=== PATIENT | female | born 1965 | race African-American/Black ===

== ENCOUNTER 2023-06-20 08:26 | Emergency (ER) | payer MEDICAID ==
[~2023-06-20] VITALS: Ht 170.2 cm; Wt 138.8 kg
[2023-06-20 08:39] VITALS: TEMP 97.7
[2023-06-20 09:05] LABS: URINE HCG NEGATIVE (NEG)
[2023-06-20 09:06] LABS: COLOR,URINE YELLOW (Yellow); GLUCOSE, URINE NEGATIVE (Neg); KETONES,URINE NEGATIVE (Neg); LEUKOCYTE ESTERASE ,URINE SMALL (Neg); NITRITES, URINE NEGATIVE (Neg); OCCULT BLOOD,URINE LARGE (Neg); PH,URINE 5.5 (4.8-8.0); PROTEIN,URINE NEGATIVE (Neg); UROBILINOGEN,URINE 0.2 E.U/dL (0.2-1.0)
[2023-06-20 09:11] LABS: CLARITY,URINE CLOUDY (Clear); UA COLLECTION TYPE CLN CATCH MIDSTREAM
[2023-06-20 09:16] LABS: BACTERIA,URINE 4+ /HPF (Neg); MUCUS STRANDS FEW /LPF (Neg); SQUAMOUS EPITHELIAL CELL,UR MANY /LPF (FEW); WBC,URINE 20-30 /HPF (0-4)
[2023-06-20 09:22] LABS: BASOPHILS % (AUTO) 0.9 % (0-1); EOSINOPHILS # (AUTO) 0.1 X10'3 (0-0.9); EOSINOPHILS % (AUTO) 1.8 % (0-6); HEMATOCRIT 39.2 % (35.0-45.0); HEMOGLOBIN 12.5 g/dl (12.0-16.0); LYMPHOCYTES # (AUTO) 2.7 X10'3 (1.1-4.8); MEAN CORPUSCULAR HEMOGLOBIN 31.3 PG (27.0-31.0); MEAN CORPUSCULAR VOLUME 97.8 FL (78-98); MEAN PLATELET VOLUME 9.3 FL (7.4-10.4); MONOCYTES # (AUTO) 0.4 X10'3 (0-0.9); MONOCYTES % (AUTO) 7.4 % (2-12); NEUTROPHILS # (AUTO) 1.8 X10'3 (1.8-7.7); NEUTROPHILS % (AUTO) 35.9 % (42-75); PLATELET COUNT 193 X10'3 (140-440); RED BLOOD COUNT 4.01 X10'6 (4.20-5.60); RED CELL DISTRIBUTION WIDTH 13.4 % (11.5-14.5)
[2023-06-20 09:39] VITALS: BP 123/83; PULSE 71; RESP 16; O2SAT 98
[2023-06-20 09:49] LABS: ALANINE AMINOTRANSFERASE 16 U/L (12-78); ALBUMIN 3.2 G/DL (3.4-5.0); ALBUMIN/GLOBULIN RATIO 0.7 (1.1-1.5); ALKALINE PHOSPHATASE 95 IU/L (46-116); ANION GAP 8 (8-16); ASPARTATE AMINO TRANSFERASE 8 U/L (10-37); BILIRUBIN,TOTAL 0.3 MG/DL (0.1-1.0); BLOOD UREA NITROGEN 17 MG/DL (7-18); CALCIUM 10.7 MG/DL (8.5-10.1); CHLORIDE 109 MMOL/L (99-107); CREATININE 0.81 MG/DL (0.40-0.90); GLUCOSE 122 MG/DL (70-104); LIPASE 90 U/L (73-393); POTASSIUM 3.8 MMOL/L (3.5-5.1); SODIUM 143 MMOL/L (135-145); TOTAL PROTEIN 7.7 G/DL (6.4-8.2); eGFR 73 ML/MIN
[2023-06-20 10:10] LABS: TOTAL CELLS COUNTED 100
[2023-06-20 10:11] LABS: PLATELET ESTIMATE NORMAL
== END 2023-06-20 10:08 | disposition home or self-care (01) ==
LOC: ER 08:27
DX: K42.9 Umbilical hernia without obstruction or gangrene (principal)
CPT/HCPCS: 36415; 80053; 81001; 81025; 83690; 85007; 85025; 99283

== ENCOUNTER 2023-07-24 05:48 | Day surgery (SDC) | payer MEDICAID ==
[2023-07-17 15:46] LABS: BASOPHILS % (AUTO) 0.7 % (0-1); EOSINOPHILS # (AUTO) 0.3 X10'3 (0-0.9); EOSINOPHILS % (AUTO) 5.1 % (0-6); LYMPHOCYTES # (AUTO) 2.6 X10'3 (1.1-4.8); LYMPHOCYTES % (AUTO) 46.8 % (21-51); MEAN CORPUSCULAR HEMOGLOBIN 31.2 PG (27.0-31.0); MEAN CORPUSCULAR HGB CONC 32.4 g/dL (33.0-36.5); MEAN CORPUSCULAR VOLUME 96.3 FL (78-98); MEAN PLATELET VOLUME 9.3 FL (7.4-10.4); MONOCYTES # (AUTO) 0.5 X10'3 (0-0.9); MONOCYTES % (AUTO) 8.4 % (2-12); NEUTROPHILS # (AUTO) 2.2 X10'3 (1.8-7.7); PRE OP HEMATOCRIT 39.3 % (35.0-45.0); PRE OP HEMOGLOBIN 12.7 g/dL (12.0-16.0); PRE OP PLATELET COUNT 203 X10'3 (140-440); PRE OP WHITE BLOOD COUNT 5.6 10'3 (4.8-10.8); RED BLOOD COUNT 4.08 X10'6 (4.20-5.60); RED CELL DISTRIBUTION WIDTH 13.1 % (11.5-14.5)
[2023-07-17 15:58] LABS: ALBUMIN 3.2 G/DL (3.4-5.0); ALBUMIN/GLOBULIN RATIO 0.8 (1.1-1.5); ALKALINE PHOSPHATASE 105 IU/L (46-116); BLOOD UREA NITROGEN 14 MG/DL (7-18); BUN/CREATININE RATIO 15.9 (10.0-20.0); CALCIUM 10.5 MG/DL (8.5-10.1); CHLORIDE 109 MMOL/L (99-107); CREATININE 0.88 MG/DL (0.40-0.90); PRE OP ALT 19 U/L (30-65); PRE OP ANION GAP 5 (8-16); PRE OP AST 12 U/L (10-37); PRE OP BILIRUB, TOTAL 0.1 MG/DL (0.0-1.0); PRE OP GLUCOSE 101 MG/DL (70-104); PRE OP SODIUM 142 MMOL/L (135-145); TOTAL CARBON DIOXIDE 27.8 MMOL/L (24-32); TOTAL PROTEIN 7.4 G/DL (6.4-8.2); eGFR 80 ML/MIN
[2023-07-24] VITALS (11 sets, daily range): BP systolic 120–156; BP diastolic 84–96; PULSE 57–71; RESP 12–16; TEMP 97.7; O2SAT 92–100
[~2023-07-24] VITALS: Ht 167.6 cm; Wt 140.7 kg
[~2023-07-24 05:48] MED LIST: NO HOME MEDS; cefazolin 2gm/D5W 100mL 100 ML IV ONE; famotidine 20mg tablet PO ONE; ringers solution, lacted 1,000 ML IV SCH
[2023-07-24] MEDS ORDERED: LIDOcaine 1% 30ml preserv. free vial ONE (06:56)
[2023-07-24] MEDS ORDERED: BUPIVAcaine/PF 2.5 mg/ml (0.25%) 30ml vial ONE ×2 (06:56→07:06)
[2023-07-24] MEDS ORDERED: BUPIVACAINE liposomal/PF 13.3 MG/ML vial IM ONE ×2 (07:00→07:06)
[2023-07-24] MEDS ORDERED: LIDOcaine 1% 30ml preserv. free vial IJ ONE (07:00)
[2023-07-24] MEDS ORDERED: BUPIVAcaine/PF 2.5 mg/ml (0.25%) 30ml vial IJ ONE (07:00)
[2023-07-24] MEDS ORDERED: fentaNYL /PF 50mcg/ml 5ml ampule ONE (07:33)
[2023-07-24] MEDS ORDERED: midazolam 1 mg/ML 2ml injection ONE (07:33)
[2023-07-24] MEDS ORDERED: morphine 4 MG/ML inj SYRINge IV PRN (07:45)
[2023-07-24] MEDS ORDERED: sevoflurane 250ml liquid IH ONE (07:45)
[2023-07-24] MEDS ORDERED: hydrALAZINE 20mg/ml inj. IV PRN (07:45)
[2023-07-24] MEDS ORDERED: ketorolac trometh. 30mg/ml inj. IV ONE (07:45)
[2023-07-24] MEDS ORDERED: ondansetron/PF 4mg/2ml inj IV PRN (07:45)
[2023-07-24] MEDS ORDERED: proCHLORperazine 10 MG/2 ml inj IV PRN (07:45)
[2023-07-24] MEDS ORDERED: morphine 2 MG/ML inj. syringe IV PRN (07:45)
[2023-07-24] MEDS ORDERED: labetalol 20mg/4ml (5mg/ml) syringe IV PRN (07:45)
[2023-07-24] MEDS ORDERED: acetaminophen 1,000mg/100ml IV 100 ML IV PRN (07:45)
[2023-07-24] MEDS ORDERED: meperidine/PF 25mg/ml syringe IV PRN ×2 (07:45)
[2023-07-24] MEDS ORDERED: ringers solution, lacted 1,000 ML IV SCH (07:45)
[2023-07-24] MEDS ORDERED: propofol inj 20 ML IV ONE (08:15)
[2023-07-24] MEDS ORDERED: ceFAZolin 1000mg inj ONE (08:15)
[2023-07-24] MEDS ORDERED: LIDOcaine 2% (20mg/ml) 5ml vial ONE (08:15)
[2023-07-24] MEDS ORDERED: rocuronium 10mg/ml inj IV ONE (08:15)
[2023-07-24] MEDS ORDERED: 0.9 % SODIUM CHLORIDE 10 ML VIAL ONE (08:15)
[2023-07-24] MEDS ORDERED: ondansetron/PF 4mg/2ml inj ONE (08:19)
[2023-07-24] MEDS ORDERED: dexamethasone sod phosphate 4mg/ml inj. ONE (08:19)
[2023-07-24] MEDS ORDERED: sugammadex 200mg/2ml injection IV ONE (09:26)
--- NOTE | 2023-07-24 09:39 | NUR ---
Received from OR via , accompanied by Anesthesiologist and report given by DR. CHAVARRIA. PATIENT ANSWERING QUESTIONS, SEVERE PAIN, V/S WNL, SCD ON , PIV 20G L.HAND, DERMABONDED LAPS SITES CLOSED CDI TO ABDOMEN.
[2023-07-24] MEDS: meperidine/PF 25mg/ml syringe IV PRN ×2 (09:41→09:56)
[2023-07-24] MEDS ORDERED: oxyCODONE/APAP 5-325mg tablet PO PRN (09:45)
--- NOTE | 2023-07-24 11:19 | NUR ---
PATIENT MEETS DISCHARGE CRITERIA FROM RECOVERY TO HOME. BROTHER IN LAW GANGA REVIEWED DISCHARGE INSTRUCTIONS ALONG WITH PATIENT. PAIN MANAGEABLE. BELONGINGS SENT WITH PATIENT AND TRANSPORTED BY WHEELCHAIR TO VEHICLE TO GO HOME.
== END 2023-07-24 11:19 | disposition home or self-care (01) ==
LOC: PAS 05:48
PROVIDERS: ATTEND Surgery
DX: K43.0 Incisional hernia with obstruction, without gangrene (principal); E66.01 Morbid (severe) obesity due to excess calories; Z68.42 Body mass index [BMI] 45.0-49.9, adult; F17.210 Nicotine dependence, cigarettes, uncomplicated; Z98.51 Tubal ligation status; Z79.899 Other long term (current) drug therapy; Z82.49 Family history of ischemic heart disease and other diseases of the circulatory system; Z82.3 Family history of stroke
CPT/HCPCS: 36415; 49594; 64488; 80053; 82948; 85025; 93005; C1781; C9290; J0690; J1100; J1885; J2175; J2250; J2405; J2704; J3010; J3490; J7030; J7120; Z7506; Z7508; Z7512; A4215; A4618

== ENCOUNTER 2024-04-25 08:00 | Emergency (ER) | payer MEDICAID ==
[~2024-04-25] VITALS: Ht 175.3 cm; Wt 138.6 kg
[~2024-04-25 08:00] MED LIST changes: -cefazolin 2gm/D5W 100mL 100 ML IV ONE; -famotidine 20mg tablet PO ONE; -ringers solution, lacted 1,000 ML IV SCH
[2024-04-25 08:09] VITALS: TEMP 98.5
[2024-04-25] MEDS ORDERED: AMOX-580 PO (10:42)
[2024-04-25] MEDS ORDERED: IBUP-1985 PO (10:42)
[2024-04-25 11:31] VITALS: BP 132/90; PULSE 64; RESP 16; O2SAT 96
[2024-04-25 11:48] LABS: URINE HCG NEGATIVE (NEG)
[2024-04-25 11:50] LABS: BILIRUBIN,URINE NEGATIVE (Neg); CLARITY,URINE SLIGHTLY CLOUDY (Clear); COLOR,URINE YELLOW (Yellow); GLUCOSE, URINE NEGATIVE (Neg); KETONES,URINE NEGATIVE (Neg); LEUKOCYTE ESTERASE ,URINE NEGATIVE (Neg); NITRITES, URINE NEGATIVE (Neg); OCCULT BLOOD,URINE MODERATE (Neg); PH,URINE 5.5 (4.8-8.0); PROTEIN,URINE NEGATIVE (Neg); UROBILINOGEN,URINE 0.2 E.U/dL (0.2-1.0)
[2024-04-25 11:54] LABS: UA COLLECTION TYPE NON-SPECIFIED
[2024-04-25 12:00] LABS: BACTERIA,URINE 2+ /HPF (Neg); SQUAMOUS EPITHELIAL CELL,UR MANY /LPF (FEW); WBC,URINE 0-4 /HPF (0-4)
== END 2024-04-25 11:33 | disposition home or self-care (01) ==
LOC: ER 08:02
DX: K02.9 Dental caries, unspecified (principal); H92.01 Otalgia, right ear; F17.200 Nicotine dependence, unspecified, uncomplicated; Z79.2 Long term (current) use of antibiotics; Z79.1 Long term (current) use of non-steroidal anti-inflammatories (NSAID)
CPT/HCPCS: 81001; 81025; 93005; 99284

== ENCOUNTER 2024-12-19 12:01 | Emergency (ER) | payer MEDICAID ==
[~2024-12-19] VITALS: Ht 170.2 cm; Wt 82.0 kg
[~2024-12-19 12:01] MED LIST changes: +IBUP-1985 PO
[2024-12-19] MEDS: docusate sod 100mg capsule PO ONE (14:51)
[2024-12-19] MEDS: magnesium citrate 296ml oral solution PO ONE (14:51)
[2024-12-19 15:11] VITALS: BP 144/87; PULSE 80; RESP 16; TEMP 97.9; O2SAT 98
[2024-12-19] MEDS ORDERED: bisacodyl 10mg suppository rectal RC STA (20:22)
[2024-12-19] MEDS ORDERED: magnesium citrate 296ml oral solution PO ONE (20:25)
[2024-12-19] MEDS ORDERED: DOCU240C26 PO (22:34)
== END 2024-12-19 15:13 | disposition home or self-care (01) ==
LOC: ER 12:02
DX: K59.00 Constipation, unspecified (principal); Z79.1 Long term (current) use of non-steroidal anti-inflammatories (NSAID)
CPT/HCPCS: 74018; 99283; 99284